=== PATIENT | female | born 2000 | race African-American/Black ===

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

== ENCOUNTER 2021-04-13 07:59 | Emergency (ER) | payer OTHER ==
[~2021-04-13] VITALS: Ht 167.6 cm; Wt 45.4 kg
[~2021-04-13 07:59] MED LIST changes: +LINZESS290 MCG PO; +MIRALAX17 GM PO
[2021-04-13] MEDS ORDERED: HYDROCODON-ACE118 ML PO (09:05)
[2021-04-13] MEDS ORDERED: SULFAMETHOXAZO473 ML PO (09:05)
[2021-04-13 09:16] VITALS: BP 122/68
== END 2021-04-13 09:17 | disposition home or self-care (01) ==
LOC: M.ERS 07:59
DX: N76.4 Abscess of vulva (principal); N93.8 Other specified abnormal uterine and vaginal bleeding; F41.9 Anxiety disorder, unspecified